=== PATIENT | female | born 1990 | race Two or more races ===

== ENCOUNTER 2021-08-08 07:17 | Day surgery (SDC) | payer OTHER ==
[~2021-08-08 07:17] MED LIST: NALTREXONE HCL50 MG PO; PRENATABS RX T1 EACH PO; VISTARIL25 MG PO
== END 2021-08-08 15:25 | disposition home or self-care (01) ==
LOC: CIR.AMB 07:17
PROVIDERS: ATTEND Specialist
DX: O02.1 Missed abortion (principal); J45.909 Unspecified asthma, uncomplicated; Z86.16 Personal history of COVID-19; M79.7 Fibromyalgia; B27.00 Gammaherpesviral mononucleosis without complication; F41.9 Anxiety disorder, unspecified

== ENCOUNTER 2021-09-02 23:21 | Emergency (ER) | payer OTHER ==
[~2021-09-02] VITALS: Ht 160 cm; Wt 63.5 kg
[2021-09-03] MEDS ORDERED: NAC600 MG (00:01)
[2021-09-03] MEDS ORDERED: FLONASE16 GM NASAL (03:43)
== END 2021-09-03 04:08 ==
LOC: ER 23:21
DX: R51.9 Headache, unspecified (principal); R53.83 Other fatigue; R53.81 Other malaise; Z20.822 Contact with and (suspected) exposure to COVID-19

== ENCOUNTER 2021-12-04 03:11 | Emergency (ER) | payer OTHER ==
[~2021-12-04] VITALS: Ht 160 cm; Wt 67.1 kg
[~2021-12-04 03:11] MED LIST changes: +FLONASE16 GM NASAL; +NAC600 MG
[2021-12-04] MEDS ORDERED: PRENATALES (03:38)
[2021-12-04] MEDS ORDERED: LDN (03:38)
== END 2021-12-04 10:09 | disposition home or self-care (01) ==
LOC: ER 03:11
DX: O26.892 Other specified pregnancy related conditions, second trimester (principal); Z3A.14 14 weeks gestation of pregnancy; R07.9 Chest pain, unspecified

== ENCOUNTER 2021-12-08 08:02 | Outpatient (CLI) | payer OTHER ==
[~2021-12-08 08:02] MED LIST changes: +LDN; +PRENATALES
== END 2021-12-08 09:00 | disposition home or self-care (01) ==
LOC: PRENATAL 08:02
PROVIDERS: ATTEND Obstetrics & Gynecology Maternal & Fetal Medicine
DX: O36.80X0 Pregnancy with inconclusive fetal viability, not applicable or unspecified (principal); Z36.9 Encounter for antenatal screening, unspecified; O99.891 Other specified diseases and conditions complicating pregnancy; Z3A.14 14 weeks gestation of pregnancy; M06.9 Rheumatoid arthritis, unspecified; M79.7 Fibromyalgia

== ENCOUNTER 2022-01-20 07:55 | Outpatient (CLI) | payer OTHER | END 2022-01-20 09:15 | disposition home or self-care (01) | LOC: PRENATAL 07:55 | PROVIDERS: ATTEND Obstetrics & Gynecology Maternal & Fetal Medicine | DX: O35.0XX0 Maternal care for (suspected) central nervous system malformation in fetus, not applicable or unspecified (principal); O35.3XX0 Maternal care for (suspected) damage to fetus from viral disease in mother, not applicable or unspecified; O99.891 Other specified diseases and conditions complicating pregnancy; Z3A.20 20 weeks gestation of pregnancy ==

== ENCOUNTER 2022-06-01 13:00 | Inpatient (IN) | payer OTHER ==
[~2022-06-01] VITALS: Ht 160 cm; Wt 81.6 kg
[~2022-06-01 13:00] MED LIST changes: +OSEL75CA PO
== END 2022-06-11 14:19 | disposition home or self-care (01) | DRG 807 ==
LOC: OB/GYN 06-09 05:29 → LDR 06-09 05:29 → OB/GYN 06-09 13:00
PROVIDERS: ADMIT Specialist; ATTEND Specialist
PROC: 10E0XZZ Delivery of Products of Conception, External Approach (ICD-10-PCS; principal; 2022-06-09)
PROC: 0W8NXZZ Division of Female Perineum, External Approach (ICD-10-PCS; 2022-06-09)
PROC: 3E033VJ Introduction of Other Hormone into Peripheral Vein, Percutaneous Approach (ICD-10-PCS; 2022-06-09)
PROC: 3E0P7VZ Introduction of Hormone into Female Reproductive, Via Natural or Artificial Opening (ICD-10-PCS; 2022-06-09)
PROC: 4A1HXCZ Monitoring of Products of Conception, Cardiac Rate, External Approach (ICD-10-PCS; 2022-06-09)
DX: O48.0 Post-term pregnancy (principal); Z37.0 Single live birth; Z3A.40 40 weeks gestation of pregnancy; Z20.822 Contact with and (suspected) exposure to COVID-19

== ENCOUNTER 2022-06-12 22:41 | Emergency (ER) | payer OTHER ==
[~2022-06-12] VITALS: Ht 160 cm; Wt 68.0 kg
== END 2022-06-13 12:24 | disposition home or self-care (01) ==
LOC: ER 22:41
DX: N39.0 Urinary tract infection, site not specified (principal); N99.821 Postprocedural hemorrhage of a genitourinary system organ or structure following other procedure; Z98.891 History of uterine scar from previous surgery; Z20.822 Contact with and (suspected) exposure to COVID-19

== ENCOUNTER 2022-08-15 22:21 | Emergency (ER) | payer OTHER ==
[~2022-08-15] VITALS: Ht 160 cm; Wt 72.6 kg
== END 2022-08-16 03:01 | disposition home or self-care (01) ==
LOC: ER 22:21
DX: R00.2 Palpitations (principal)

== ENCOUNTER 2022-08-25 21:45 | Emergency (ER) | payer OTHER ==
[~2022-08-25] VITALS: Ht 160 cm; Wt 72.6 kg
[2022-08-26] MEDS ORDERED: PAXLOVID 300-11 EACH PO (04:03)
== END 2022-08-26 04:15 ==
LOC: ER 21:45
DX: B34.9 Viral infection, unspecified (principal); Z20.822 Contact with and (suspected) exposure to COVID-19; I49.9 Cardiac arrhythmia, unspecified

== ENCOUNTER 2022-08-31 11:24 | Emergency (ER) | payer OTHER ==
[~2022-08-31] VITALS: Ht 160 cm; Wt 77.1 kg
[~2022-08-31 11:24] MED LIST changes: +PAXLOVID 300-11 EACH PO
[2022-08-31] MEDS ORDERED: BUDEO.25 IH (15:17)
[2022-08-31] MEDS ORDERED: XOPENEX0.63 MG/3 IH (15:17)
== END 2022-08-31 16:05 | disposition home or self-care (01) ==
LOC: ER 11:24
DX: T50.905A Adverse effect of unspecified drugs, medicaments and biological substances, initial encounter (principal); Y92.89 Other specified places as the place of occurrence of the external cause; Z20.822 Contact with and (suspected) exposure to COVID-19; M79.7 Fibromyalgia

== ENCOUNTER 2022-09-02 23:09 | Emergency (ER) | payer OTHER ==
[~2022-09-02] VITALS: Ht 160 cm; Wt 77.1 kg
[~2022-09-02 23:09] MED LIST changes: +BUDEO.25 IH; +XOPENEX0.63 MG/3 IH
[2022-09-03] MEDS ORDERED: BUDEO.25 IH (04:53)
[2022-09-03] MEDS ORDERED: XOPENEX0.63 MG/3 IH (04:53)
== END 2022-09-03 05:01 ==
LOC: ER 23:09
DX: R06.02 Shortness of breath (principal); Z20.822 Contact with and (suspected) exposure to COVID-19

== ENCOUNTER 2022-10-02 02:29 | Emergency (ER) | payer OTHER ==
[~2022-10-02] VITALS: Ht 160 cm; Wt 81.6 kg
[2022-10-02] MEDS ORDERED: DOLOGESIC-DF 51 EACH PO (04:58)
== END 2022-10-02 05:03 ==
LOC: ER 02:29
DX: R07.89 Other chest pain (principal); R00.2 Palpitations; Z88.6 Allergy status to analgesic agent

== ENCOUNTER 2022-11-15 15:00 | Emergency (ER) | payer OTHER ==
[~2022-11-15] VITALS: Ht 170.2 cm; Wt 73.0 kg
[~2022-11-15 15:00] MED LIST changes: +DOLOGESIC-DF 51 EACH PO
[2022-11-15] MEDS ORDERED: ZYRTEC10 M3 (15:33)
== END 2022-11-15 19:25 | disposition home or self-care (01) ==
LOC: ER 15:00
DX: T78.40XA Allergy, unspecified, initial encounter (principal); Z20.822 Contact with and (suspected) exposure to COVID-19

== ENCOUNTER → 2022-11-27 | Emergency (ER) | payer OTHER ==
[~2022-11-27] VITALS: Ht 162.6 cm; Wt 77.1 kg
[~2022-11-27] MED LIST changes: +ZYRTEC10 M3
== END | disposition left against medical advice (07) ==
LOC: ER 01:24
DX: Z53.21 Procedure and treatment not carried out due to patient leaving prior to being seen by health care provider (principal)